=== PATIENT | male | born 1995 | race African-American/Black ===

== ENCOUNTER 2020-12-30 17:02 | Emergency (ER) | payer OTHER ==
[~2020-12-30] VITALS: Ht 180.3 cm; Wt 80.6 kg
[2020-12-30] MEDS ORDERED: DEXAMETHASONE 4 MG/ML, 1ML PO ONE (18:00)
[2020-12-30] MEDS ORDERED: ACETAMINOPHEN 500 MG TABLET PO ONE (22:00)
--- NOTE | 2020-12-30 22:04 | NUR ---
PT C/O BAD HEADACHE, DIARRHEA, VOMITTING ONCE, BODYACHES. DENIES SOB, CP. ATTACHED TO MONITORS. VSS. NADN. PT CHANGED INBTO GOWN BED IN LOW, RAILS ENAGGED, CALL LIGHT ON LAP.
[2020-12-30] MEDS ORDERED: ACETAMINOPHEN 500 MG TABLET ONE (22:27)
[2020-12-30] MEDS ORDERED: DEXAMETHASONE 4 MG/ML, 1ML ONE ×2 (22:32→23:01)
[2020-12-30 23:30] VITALS: BP 114/70
--- NOTE | 2020-12-30 23:32 | NUR ---
Patient/Caregiver given discharge instructions and they have confirmed that they understand the instructions. Patient ambulatory with steady gait. NAD, all questions answered appropriately, denies additional needs at this time. No personal belongings left in room after discharge.
== END 2020-12-30 23:34 | disposition home or self-care (01) ==
LOC: ED 22:04
DX: U07.1 COVID-19 (principal); R06.9 Unspecified abnormalities of breathing; M79.10 Myalgia, unspecified site; R50.9 Fever, unspecified
CPT/HCPCS: 71045; 99284; J1100; U0003; U0005

== ENCOUNTER 2021-01-08 18:31 | Emergency (ER) | payer OTHER ==
[~2021-01-08] VITALS: Ht 180.3 cm; Wt 90.0 kg
[2021-01-08 19:18] VITALS: BP 109/57
--- NOTE | 2021-01-08 19:24 | NUR ---
COVID SWAB DONE IN TRIAGE.
--- NOTE | 2021-01-08 19:34 | NUR ---
Patient given discharge instructions and they have confirmed that they understand the instructions. Patient ambulatory with steady gait. NAD, all questions answered appropriately, denies additional needs at this time. No personal belongings left in room after discharge.
== END 2021-01-08 19:36 | disposition home or self-care (01) ==
LOC: ED 19:30
DX: R51.9 Headache, unspecified (principal); J06.9 Acute upper respiratory infection, unspecified; Z20.822 Contact with and (suspected) exposure to COVID-19; M79.10 Myalgia, unspecified site
CPT/HCPCS: 99283; U0003; U0005